=== PATIENT | female | born 1980 | race African-American/Black ===

== ENCOUNTER 2022-02-11 11:54 | Outpatient (REF) | payer MEDICAID, SELFPAY ==
--- NOTE | ~2022-02-11 | MM_ITS ---
EXAMINATION: MM SCREENING DIGITAL BREAST TOMOSYNTHESIS, BILATERAL CLINICAL INFORMATION: Screening. Asymptomatic. No prior breast imaging. Age 41. Prior history reduction mammoplasty 1998. The lifetime risk of breast cancer based on the Tyrer-Cuzick Model is 10%. COMPARISON: None (current study represents initial baseline exam). TECHNIQUE: Digital breast tomosynthesis is performed in both the craniocaudal and mediolateral oblique views along with computer-aided detection (CAD). Synthesized 2D images are generated from the tomosynthesis. FINDINGS: There are scattered areas of fibroglandular density (ACR BI-RADS breast composition Category b). There are no significant masses, abnormal calcifications, or other abnormalities. No architectural abnormality. The axilla and skin contours are unremarkable. MM/MM tomosynthesis screening BI IMPRESSION: No mammographic evidence of malignancy. ASSESSMENT: BI-RADS 1: Negative RECOMMENDATION: Routine annual mammography screening. This patient's information was entered into a reminder system with a target due date for their next mammogram.
== END 2022-02-11 11:55 | disposition home or self-care (01) ==
LOC: HO.MAMMO 11:54
PROVIDERS: PCP Pediatrics; Visit Provider Pediatrics
DX: Z12.31 Encounter for screening mammogram for malignant neoplasm of breast (principal)
CPT/HCPCS: 77063; 77067

== ENCOUNTER 2024-03-15 08:30 | Outpatient (REF) | payer MEDICAID, SELFPAY ==
[2024-03-15 15:05] LABS: MANUAL DIFF FLAG NO
[2024-03-15 15:11] LABS: Basophils Percent Auto 0.3 % (0-2); Eosinophils Absolute Auto 0.1 X10*3/uL (0.0-0.4); Eosinophils Percent Auto 0.7 % (0-4); Hematocrit 38.5 % (37.0-47.0); Hemoglobin 11.9 g/dl (12.0-16.0); Imm Gran Abs Auto 0.03 X10*3/uL (0.00-0.03); Imm Gran Pct Auto 0.4 % (0.0-0.4); Lymphocytes Absolute Auto 2.1 X10*3/uL (1.2-4.9); Lymphocytes Percent Auto 29.9 % (20-40); Mean Corpuscular HGB Conc 30.9 g/dl (31.0-35.0); Mean Corpuscular Hemoglobin 23.6 pg (27.0-33.0); Mean Corpuscular Volume 76.4 fL (80.0-98.0); Mean Platelet Volume 12.1 fL (9.4-12.3); Monocytes Absolute Auto 0.5 X10*3/uL (0.1-1.2); Neutrophils Absolute Auto 4.3 x10*3/uL (2.0-8.3); Neutrophils Percent Auto 61.7 % (45-73); Platelet Count 346 X10*3/uL (160-400); Red Blood Count 5.04 X10*6/uL (4.20-5.50); Red Cell Distribution Width 15.1 % (11.0-16.0)
[2024-03-15 15:34] LABS: Alanine Aminotransferase 13 U/L (0-31); Albumin Level 4.1 g/dL (3.5-5.0); Alkaline Phosphatase 85 U/L (39-117); Anion Gap 11 (12-20); Aspartate Amino Transferase 18 U/L (5-31); Bilirubin Direct 0.2 mg/dL (0.0-0.5); Bilirubin Total 0.5 mg/dL (0.0-1.0); Blood Urea Nitrogen 9 mg/dL (9-16); Calcium 9.7 mg/dL (8.4-10.2); Carbon Dioxide 26 mmol/L (22-29); Chloride 101 mmol/L (96-108); Cholesterol 215 mg/dL (<200); Estimated Glomerular Filt Rate > 60; Glucose Fasting 229 mg/dL (60-99); HDL Cholesterol 51 mg/dL (>40); LDL Cholesterol Calculated 133 mg/dL (<100); Potassium 4.4 mmol/L (3.3-5.1); Sodium 134 mmol/L (135-145); Total Protein 7.2 g/dL (6.5-8.0); Triglycerides 156 mg/dL (<150)
[2024-03-15 15:41] LABS: Creatinine Urine 152.39 mg/dL; Microalbum/Creatinine Ratio Ur 6.5 ug/mg cr (<30)
[2024-03-15 15:53] LABS: TSH reflex Free T4 1.42 uIU/mL (0.32-4.0)
[2024-03-18 17:43] LABS: TS Negative Control Passed; TS Panel A 0; TS Panel B 0; TS Positive Control Passed; TSpotTB Negative (Negative)
== END 2024-03-15 08:31 | disposition home or self-care (01) ==
LOC: HO.CHCLDS 08:30
PROVIDERS: Visit Provider Pediatrics
DX: Z00.00 Encounter for general adult medical examination without abnormal findings (principal); E11.9 Type 2 diabetes mellitus without complications
CPT/HCPCS: 36415; 80048; 80061; 80076; 82043; 82570; 84443; 85025; 86481

== ENCOUNTER 2024-09-19 10:07 | Outpatient (REF) | payer MEDICAID, SELFPAY ==
[2024-09-19 14:27] LABS: Basophils Percent Auto 0.5 % (0-2); Eosinophils Percent Auto 0.6 % (0-4); Hematocrit 35.1 % (37.0-47.0); Hemoglobin 10.8 g/dl (12.0-16.0); Imm Gran Abs Auto 0.03 X10*3/uL (0.00-0.03); Imm Gran Pct Auto 0.5 % (0.0-0.4); Lymphocytes Absolute Auto 1.7 X10*3/uL (1.2-4.9); MANUAL DIFF FLAG NO; Mean Corpuscular HGB Conc 30.8 g/dl (31.0-35.0); Mean Corpuscular Hemoglobin 23.6 pg (27.0-33.0); Mean Corpuscular Volume 76.6 fL (80.0-98.0); Mean Platelet Volume 11.5 fL (9.4-12.3); Monocytes Absolute Auto 0.5 X10*3/uL (0.1-1.2); Monocytes Percent Auto 7.5 % (2-11); Neutrophils Absolute Auto 4.1 x10*3/uL (2.0-8.3); Neutrophils Percent Auto 63.9 % (45-73); Platelet Count 343 X10*3/uL (160-400); Red Blood Count 4.58 X10*6/uL (4.20-5.50); Red Cell Distribution Width 14.8 % (11.0-16.0); White Blood Count 6.4 X10*3/uL (4.8-10.8)
[2024-09-19 14:35] LABS: C Reactive Protein 4.36 mg/dL (< or = 0.50); Uric Acid 3.6 mg/dL (2.4-5.7)
[2024-09-19 14:58] LABS: Erythrocyte Sedimentation Rate 25 MM/HR (0-20)
[2024-09-19 15:29] LABS: Creatinine Urine 50.42 mg/dL; Microalbum/Creatinine Ratio Ur 35.7 ug/mg cr (<30)
== END 2024-09-19 10:08 | disposition home or self-care (01) ==
LOC: HO.CHCLDS 10:07
PROVIDERS: Visit Provider Pediatrics
DX: E11.9 Type 2 diabetes mellitus without complications (principal); M25.422 Effusion, left elbow
CPT/HCPCS: 36415; 82043; 82570; 84550; 85025; 85652; 86140

== ENCOUNTER 2025-01-12 10:48 | Outpatient (REF) | payer MEDICAID, SELFPAY ==
--- OUTSIDE RECORDS SUMMARY | 2025-01-12 12:29 | XMS_ITS | Encounter Summary ---
Author Organization [employer] Address [address] [facility] 7 [place] [address] Care Team Providers Care Pension Administrator Name Role Phone Milena Spring MD Primary Care Provider [phone] Reason for Visit * Reason Comments Med Refill Encounter Details Date Type Department Care Team ([facility] st Contact Info) Description 02/04/2024 Refill [facility] CHC MED & PEDS [address] [place], [place] [phone] Milena Spring MD [address] [place] [address] Social History Tobacco Use Types Packs/Day Years Used Date Smoking Tobacco: Never Passive Smoke Exposure: Never Smokeless Tobacco: Never Depression Answer Date Recorded Patient Health Questionnaire-9 Score 3 11/18/2023 Patient Health Questionnaire-9 Score 3 11/18/2023 Last PHQ-9: Questionnaire Data Not on file 0 11/18/2023 Housing Stability Answer Date Recorded What is your housing situation today? [place] 08/06/[address] you li ve. Do you have problems with any of the following? None of the above 08/06/2023 Food Insecurity Answer Date Recorded Within the past 12 months, y ou worried that your food would run out before you got money to buy more: Never True 08/06/2023 Within the past 12 months,th e food you bought just didn't last and you didn't have enough money to get more: Never True Transportation Answer Date Recorded In the past 12 months, has l ack of transportation kept you from medical appts, meetings, work or from getting things needed for daily living? No 08/06/2023 Utilities Answer Date Recorded In the past 12 months, has t he electric, gas, oil or water company threatened to shut off services in your home? No 08/06/2023 Depression Answer Date Recorded Patient Health Questionnaire-2 Score 1 11/18/2023 Comments No Sex and Gender Information Value Date Recorded Sex Assigned at Female 08/10/2022 10:17 AM EDT Legal Sex Female 10:17 AM EDT Gender Identity Female 08/10/2022 10:17 AM EDT Sexual Orientation Straight 08/10/2022 10 :17 AM EDT documented as of this encounter Plan of Treatment Upcoming Encounters Date Type Department Care Team ([facility] st Contact Info) Description 02/27/2025 9:00 AM EDT Telemedicine [facility] MED & PEDS [address] [place] [address] Milena Spring MD [address] [place] [address] documented as of this encounter Visit Diagnoses Not on filedocumented in this encounter Additional Health Concerns Assessment Noted Time PHQ-9 Depression Total Score: 3 11/18/19 24 2:36 PM EST documented as of this encounter Care Teams Pension Administrator Relationship Specialty Start Date End Date Milena Spring MD [address] [place] [address] PCP - General Family Medicine 08/21/20 documented as of this encounter
--- OUTSIDE RECORDS SUMMARY | 2025-01-12 12:30 | XMS_ITS | Encounter Summary ---
Author Organization [employer] Address [address] [place] [address] Care Team Providers Care Liability Claims Representative Name Role Phone Milena Spring MD Primary Care Provider [phone] Reason for Visit * Reason Comments Med Refill Encounter Details Date Type Department Care Team ([facility] Contact Info) Description 12/05/2022 Refill [facility] MEDICINE [address] [place] [address] Milena Spirng MD [address] [place] [address] Social History Tobacco Use Types Packs/Day Years Used Date Smoking Tobacco: Never Assessed Comments Unknown Sex and Gender Information Value Date Recorded Sex Assigned at Female 08/10/2022 10:17 AM EDT Legal Sex Female 10:17 AM EDT Gender Identity Female 08/10/2022 10:17 AM EDT Sexual Orientation Straight 08/10/2022 10 :17 AM EDT documented as of this encounter Plan of Treatment Upcoming Encounters Date Type Department Care Team ([facility] Contact Info) Description 02/27/2025 9:00 AM EDT Telemedicine [facility] CHC MED & PEDS [address] [place], [place] [phone] Milena Spring MD [address] [place] [address] documented as of this encounter Visit Diagnoses Not on filedocumented in this encounter Care Teams Liability Claims Representative Relationship Specialty Start Date End Date Milena Spring MD [address] [place] [address] PCP - General Family Medicine 08/21/20 documented as of this encounter
--- OUTSIDE RECORDS SUMMARY | 2025-01-12 12:30 | XMS_ITS | Encounter Summary ---
Author Organization [employer] Address [address] [place] [address] [address] [address] Care Team Providers Care Visualization Developer Name Role Phone Milena Spring MD Primary Care Provider [phone] Reason for Referral * Imaging (Routine) - Authorized Specialty Diagnoses / Procedures Referred By Contac t Referred To Contact Radiology Diagnoses Breast cancer screening by mammogram Procedures BI Mammogram Screening Tomosynthesis Bilateral Milena Spring MD [address] [place] [address] Phone: tel: fax: [facility] Referral ID Status Reason Start Date Expiration Date V isits Requested Visits Authorized [id number] Authorized 01/12/2025 01/12/2026 1 1 Encounter Details Date Type Department Care Team (Late st Contact Info) Description 01/12/2025 9:45 AM EDT Office Visit [facility] CHC MED & PEDS [address] [place] [address] Milena Spring MD [address] [place] [address] Type 2 diabetes mellitus not at goal (CMS/HCC) (Primary Dx); Abscess of bursa of left elbow; Adjustment disorder with depressed mood; Breast cancer screening by mammogram Social History Tobacco Use Types Packs/Day Years Used Date Smoking Tobacco: Never Passive Smoke Exposure: Never Smokeless Tobacco: Never Depression Answer Date Recorded Patient Health Questionnaire-9 Score 0 01/12/2025 Patient Health Questionnaire-9 Score 0 01/12/2025 Last PHQ-9: Questionnaire Data Not on file 0 01/12/2025 Housing Stability Answer Date Recorded What is your housing situation today? [place] 01/12/[address] you li ve. Do you have problems with any of the following? None of the above 01/12/2025 Food Insecurity Answer Date Recorded Within the past 12 months, y ou worried that your food would run out before you got money to buy more: Never True 01/12/2025 Within the past 12 months,th e food you bought just didn't last and you didn't have enough money to get more: Never True 01/2025 Transportation Answer Date Recorded In the past 12 months, has l ack of transportation kept you from medical appts, meetings, work or from getting things needed for daily living? No 01/12/2025 Utilities Answer Date Recorded In the past 12 months, has t he electric, gas, oil or water company threatened to shut off services in your home? No 01/12/2025 Depression Answer Date Recorded Patient Health Questionnaire-2 Score 0 01/12/2025 Internet Access Answer Date Recorded Internet Access Q1 Yes 01/12/2025 Internet Access Q2 Not on file 01/12/2025 Comments No Sex and Gender Information Value Date Recorded Sex Assigned at Female 08/10/2022 10:17 AM EDT Legal Sex Female 10:17 AM EDT Gender Identity Female 08/10/2022 10:17 AM EDT Sexual Orientation Straight 08/10/2022 10 :17 AM EDT documented as of this encounter Last Filed Vital Signs Vital Sign Reading Time Taken Comments Blood Pressure 128/82 01/12/2025 9:12 AM EDT Pulse 82 01/12/2025 9:12 AM EDT Temperature 36.4 ??C (97.6 ??F) 01/12/2025 9:12 AM ED T Respiratory Rate 20 01/12/2025 9:12 AM EDT Oxygen Saturation 100% 01/12/2025 9:12 AM EDT Inhaled Oxygen Concentration - - Weight 85.7 kg (189 lb) 01/12/2025 9:12 AM EDT Height 158.8 cm (5' 2.5 ) 01/12/2025 9:12 AM EDT Body Mass Index 34.02 01/12/2025 9:12 AM EDT documented in this encounter Plan of Treatment Upcoming Encounters Date Type Department Care Team (Late st Contact Info) Description 02/27/2025 9:00 AM EDT Telemedicine [facility] CHC MED & PEDS [address] [place] [address] Milena Spring MD [address] [place] [address] Scheduled Orders Name Type Priority Associated Diagnoses Orde r Schedule Albumin, Random Urine W/Creatinine Lab Routine Type 2 diabetes mellitus not at goal (CMS/HCC) Abscess of bursa of left elbow Adjustment disorder with depressed mood Expected: 01/12/2025 (Approximate), Expires: 01/12/2026 Basic Metabolic Panel, Fasting Lab Routine Type 2 diabetes mellitus not at goal (CMS/HCC) Abscess of bursa of left elbow Adjustment disorder with depressed mood Expected: 01/12/2025 (Approximate), Expires: 01/12/2026 CBC auto differential Lab Routine Type 2 diabetes mellitus not at goal (CMS/HCC) Abscess of bursa of left elbow Adjustment disorder with depressed mood Expected: 01/12/2025 (Approximate), Expires: 01/12/2026 Hepatic Function Panel Lab Routine Type 2 diabetes mellitus not at goal (CMS/HCC) Abscess of bursa of left elbow Adjustment disorder with depressed mood Expected: 01/12/2025 (Approximate), Expires: 01/12/2026 Vitamin B12/Folate, Serum Panel Lab Routine Type 2 diabetes mellitus not at goal (CMS/HCC) Abscess of bursa of left elbow Adjustment disorder with depressed mood Expected: 01/12/2025, Expires: 01/12/2026 TSH W/Reflex to FT4 Lab Routine Type 2 diabetes mellitus not at goal (CMS/HCC) Abscess of bursa of left elbow Adjustment disorder with depressed mood Expected: 01/12/2025 (Approximate), Expires: 01/12/2026 Lipid Panel, Standard Lab Routine Type 2 diabetes mellitus not at goal (CMS/HCC) Abscess of bursa of left elbow Adjustment disorder with depressed mood Expected: 01/12/2025 (Approximate), Expires: 01/12/2026 Hepatitis C Antibody with Reflex to HCV, RNA, Quantitative, Real-Time PCR Lab Routine Type 2 diabetes mellitus not at goal ([facility]) Abscess of bursa of left elbow Adjustment disorder with depressed mood Expected: 01/12/2025, Expires: 01/12/2026 C-reactive Protein Lab Routine Type 2 diabetes mellitus not at goal ([facility]) Abscess of bursa of left elbow Adjustment disorder with depressed mood Expected: 01/12/2025 (Approximate), Expires: 01/12/2026 BI Mammogram Screening Tomosynthesis Bilateral Imaging Routine Breast cancer screening by mammogram Expected: 01/12/2025, Expires: 03/14/2026 documented as of this encounter Procedures Procedure Name Priority Date/Time Associated Diagnosis Comments POCT GLYCATED HEMOGLOBIN, TOTAL Routine 01/12/2025 10:09 AM EDT Type 2 diabetes mellitus not at goal ([facility]) POCT GLUCOSE Routine 01/12/2025 10:08 AM EDT Type 2 diabetes mellitus not at goal ([facility]) documented in this encounter Results * (ABNORMAL) POCT HGB A1C (01/12/2025 10:09 AM EDT) Hemoglobin A1C 7.6(A) 4.0 - 6.0 % QC Media Lot # [id number] Lot# Expiration Date [id number] Blood 01/12/2025 10:0 9 AM EDT us Milena Spring MD POINT OF CARE TEST ENTER/EDIT ORDERABLES Final Result * POCT Glucose (01/12/2025 10:08 AM EDT) Glucose Blood, POC 112 60 - 200 mg/dL QC Media Lot # [id number] Lot# Expiration Date 7,325 Blood Capillary blood specimen / Unknown 01/12/2025 10:08 AM EDT us Milena Spring MD POINT OF CARE TEST ENTER/EDIT ORDERABLES Final Result documented in this encounter Visit Diagnoses Diagnosis Type 2 diabetes mellitus not at goal ([facility])- Primary Abscess of bursa of left elbow Other disorders of synovium, tendon, and bursa Adjustment disorder with depressed mood Breast cancer screening by mammogram documented in this encounter Additional Health Concerns Assessment Noted Time PHQ-9 Depression Total Score: 0 01/13/20 25 9:18 AM EDT documented as of this encounter Care Teams Visualization Developer Relationship Specialty Start Date End Date Milena Spring MD [address] [place] [address] PCP - General Family Medicine 08/21/20 documented as of this encounter
--- OUTSIDE RECORDS SUMMARY | 2025-01-12 12:30 | XMS_ITS | Encounter Summary ---
Author Organization [employer] Address [address] [facility] [address], [place] [address] Care Team Providers Care Appointment Setter Name Role Phone Milena Spring MD Primary Care Provider [phone] Reason for Visit * Reason Onset Date Comments Chart Prep 01/09/2025 Encounter Details Date Type Department Care Team ([facility] st Contact Info) Description 01/09/2025 Telephone [facility] CHC MED & PEDS [address] [place], [place] [phone] Milena Spring MD [address] [place] [address] Chart Prep Social History Tobacco Use Types Packs/Day Years [...] AM EDT documented as of this encounter Miscellaneous Notes * Telephone Encounter - Suzanna Mohr [place] - 01/09/2025 3:45 PM EDT Chart Prep Labs: done Images: not done Vaccines due: yes Referrals: not applicable Screenings: colonoscopy, foot exam, STI screening, and LMP Overdue care gaps: A1c, Glucose, SBIRT, SDOH, PHQ-9, Oral health screening, Disability screen, and Tobacco documented in this encounter Plan of Treatment Upcoming Encounters Date Type Department Care Team (Late st Contact Info) Description 02/27/2025 9:00 AM EDT Telemedicine [facility] MED & PEDS [address] [place] [address] Milena Spring MD [address] [place] [address] documented as of this encounter Visit Diagnoses Not on filedocumented in this encounter Additional Health Concerns Assessment Noted Time PHQ-9 Depression Total Score: 3 11/18/19 24 2:36 PM EST documented as of this encounter Care Teams Appointment Setter Relationship Specialty Start Date End Date Milena Spring MD [address] [place] [address] PCP - General Family Medicine 08/21/20 documented as of this encounter
--- OUTSIDE RECORDS SUMMARY | 2025-01-12 12:30 | XMS_ITS | Encounter Summary ---
Author Organization [employer] Address [address] [facility] [address] [place] [address] Care Team Providers Care Front Office Clerk Name Role Phone Milena Spring MD Primary Care Provider [phone] Encounter Details Date Type Department Care Team (Latest Contact Info) Description 01/12/2025 Travel Social History Tobacco Use Types Packs/Day Years [...] Info) Description 02/27/2025 9:00 AM EDT Telemedicine [facility] MED & PEDS [address] [place] [address] Milena Spring MD [address] [place] [address] documented as of this encounter Visit Diagnoses Not on filedocumented in this encounter Additional Health Concerns Assessment Noted Time PHQ-9 Depression Total Score: 0 01/13/20 25 9:18 AM EDT documented as of this encounter Care Teams Front Office Clerk Relationship Specialty Start Date End Date Milena Spring MD [address] [place] [address] PCP - General Family Medicine 08/21/20 documented as of this encounter
--- OUTSIDE RECORDS SUMMARY | 2025-01-12 12:30 | XMS_ITS | Clinical Summary ---
Author Organization [employer] Address [address] [place] [address] [address] [place] [address] Care Team Providers Care Entry Level Account Manager Name Role Phone Milena Spring MD Primary Care Provider [phone] Allergies No known active allergies Medications empagliflozin (Jardiance) 25 MG take 1 tablet by oral route every day in the morning 07/03/20 22 Active ibuprofen 600 MG tablet TAKE ONE TABLET BY MOUTH THREE TIMES DAILY WITH FOOD 30 tablet 01/01/20 23 Active furosemide (Lasix) 40 MG tabletIndication s:Type 2 diabetes mellitus without complication, without long-term current use of insulin (CMS/[facility]) TAKE ONE TABLET EVERY MORNING 90 tablet 02/13/20 23 Active Stimulant Laxative 8.6-50 MG tabletIndication s:Chronic idiopathic constipation TAKE TWO TABLETS EVERY EVENING 180 tablet 1 09/22/20 23 Active glucose blood (FREESTYLE LITE) test strip Use 1 Strip by To Skin route 2 times every day 100 each 11 09/24/20 23 Active lisinopril 5 MG tablet TAKE ONE TABLET BY MOUTH EVERY MORNING 90 tablet 1 03/30/20 24 Active insulin pen needle (Pentips) 31G x 5 mm miscIndications: Type 2 diabetes mellitus without complication, with long-term current use of insulin (CMS/HCC) USE FOUR DAILY 100 each 05/15/20 24 Active Lantus SoloStar 100 UNIT/ML pen INJECT 50 UNITS SUBCUTANEOUSLY AT BEDTIME 15 mL 5 06/19/20 24 Active ammonium lactate (Amlactin) 12 % cream APPLY TO THE AFFECTED AREA(S) THREE TIMES DAILY 385 g 5 06/21/20 24 Active Jardiance 25 MGIndications:Ty pe 2 diabetes mellitus without complication, without long-term current use of insulin ([facility]) TAKE ONE TABLET BY MOUTH EVERY MORNING 90 tablet 3 07/07/20 24 Active pantoprazole (ProtoNix) 20 MG EC tabletIndication s:Chronic idiopathic constipation TAKE ONE TABLET EVERY MORNING 90 tablet 11 07/07/20 24 Active glipiZIDE (Glucotrol) 10 MG tabletIndication s:Type 2 diabetes mellitus without complication, without long-term current use of insulin ([facility]) TAKE ONE TABLET IN THE MORNING AND EVENING 180 tablet 07/07/20 24 Active semaglutide (Ozempic) 2 MG/1.5ML solution pen-injectorIndi cations:Type 2 diabetes mellitus not at goal ([facility]) Inject 1 mg weekly 2 each 09/19/20 24 Active Blood Glucose Monitoring Suppl (Blood Glucose Monitor System) w/Device kitIndications:T ype 2 diabetes mellitus not at goal ([facility]) Use to check BS as needed 1 kit 09/19/20 Active Continuous Glucose Monitor Sup miscIndications: Type 2 diabetes mellitus not at goal ([facility]) Check BS as needed 2 Units 09/19/20 24 Active ferrous sulfate (Fe Tabs) 325 (65 Fe) MG EC tablet Take 1 tablet (325 mg) by mouth with breakfast. 30 tablet 5 09/28/20 24 025 Active metFORMIN XR (Glucophage-XR) 500 MG 24 hr tablet TAKE TWO TABLETS EVERY EVENING WITH SUPPER, DO NOT BREAK, CRUSH, DISSOLVE OR CHEW 60 tablet 11 11/29/19 25 Active venlafaxine XR (Effexor XR) 37.5 MG 24 hr capsule Take 1 capsule (37.5 mg) by mouth Once per day. Do not crush or chew. 30 capsule 2 01/13/20 25 025 Active Active Problems Problem Noted Date Diagnosed Date Adjustment disorder with depressed mood 12/23/19 18 Diabetes mellitus 12/30/2011 Obesity 12/30/2011 Encounters Date Type Department Care Team Description 01/12/2025 9:45 AM EDT Office Visit [facility] [address] [place] [address] Milena Spring MD Type 2 diabetes mellitus not at goal ([facility]) (Primary Dx); Abscess of bursa of left elbow; Adjustment disorder with depressed mood; Breast cancer screening by mammogram 01/12/2025 Travel 01/09/2025 Telephone [facility] [address] [place] [address] Milena Spring MD Chart Prep 12/22/2024 Population Health Risk Score [facility] ([facility]) Department [address] [place] [phone] Provider, Population Health Generic 12/15/2024 Telephone [facility] [address] [place] [address] Milena Spring MD Nurse Triage 11/29/2024 Refill [facility] [address] [place] [address] Milena Spring MD 11/08/2024 Telephone [facility] [address] [place] [phone] Milena Spring MD 11/07/2024 Orders Only [facility] [address] [place] [phone] Milena Spring MD Type 2 diabetes mellitus not at goal (CMS/HCC) (Primary Dx) 11/07/2024 Telephone [facility] [address] [place] [address] Usha Casey, PharmD 10/27/2024 Telephone [facility] [address] [place] [address] Milena Spring MD No Show from Last 3 Months Immunizations Name Administration Dates Next Due Influenza injectable quadriv alent IIV4 with preservative 08/02/2019,08/17/2018,08/10/2017 Influenza injectable quadriv alent preservative free 11/18/2023,08/07/2021,09/02/2020 Influenza, IIV3, injectable 07/11/2014, 3,08/13/2009 Tdap 08/17/2018,10/26/2013,12/12/2010 Social History Tobacco Use Types Packs/Day Years Used Date Smoking Tobacco: Never Passive Smoke Exposure: Never Smokeless Tobacco: Never Tobacco Cessation:Counseling Given: Not Answered Depression Answer Date Recorded Patient Health Questionnaire-9 [...] Orientation Straight 08/10/2022 10 :17 AM EDT Last Filed Vital Signs Vital Sign Reading [...] Mass Index 34.02 01/12/2025 9:12 AM EDT Plan of Treatment Upcoming Encounters Date Type Department Care Team (Late st Contact Info) Description 02/27/2025 9:00 AM EDT Telemedicine [facility] [address] [place] [address] Milena Spring MD [address] [place] [address] Health Maintenance Due Date Last Done Comments CT Colonography 1979 Colonoscopy 1979 Colorectal Cancer Screening 1979 FIT DNA/Cologuard 1979 FIT 1979 FOBT 1979 HIV Screening 1979 Sigmoidoscopy 1979 Family Planning (PISQ) 1994 Hepatitis B Vaccines (1 of 3 - 19+ 3-dose series) 1998 Pneumococcal Vaccine: Pediatrics (0 to 5 Years) and At-Risk Patients (6 to 49) Years) (1 of 2 - PCV) 1998 Mammogram 02/12/2024 02/11/2022 COVID-19 Vaccine (3 - season) 2024 06/19/2021, 05/29/2021 Influenza Vaccine (#1) 2024 , 08/07/2021, 09/02/2020, Additional history exists Pap Smear 09/18/2024 09/18/2021 Diabetes: Foot Exam 11/18/2024 11/18/2023, 11/18/2023, 11/18/2023, Additional history exists Lipid Panel 03/15/2025 03/15/2024, 08/11, 09/20/2020 Diabetes: Hemoglobin A1C 04/13/2025 04/04/2 025, 09/19/2024, 11/18/2023, Additional history exists Diabetes: Urine Protein Screening 09/19/2025 09/19/2024, 03/15/2024, 08/20/2021, Additional history exists Eye Exam 12/15/2025 12/16/2023 Alcohol/Substance Use Screening 01/12/2026 01/12/2025 Depression Screening 01/12/2026 01/12/2025, 01/13/20 25 SDOH Screening 01/12/2026 01/12/2025 Tobacco Screening 01/12/2026 01/12/2025 Cervical Cancer Screening 09/18/2026 HPV/Cotest 09/18/2026 09/18/2021 DTaP/Tdap/Td Vaccines (4 - Td or Tdap) 08/17/2028 08/17/2018, 10/26/2013, 12/12/2010 Zoster Vaccines (1 of 2) 2029 RSV Patients and Patients Aged 60 years or older (1 - 1-dose 75+ series) 2054 Hepatitis C Screening Completed 11/14/2019 HIB Vaccines Aged Out No longer eligi ble based on patient's age to complete this topic HPV Vaccines Aged Out No longer eligi ble based on patient's age to complete this topic Hepatitis A Vaccines Aged Out No long er eligible based on patient's age to complete this topic IPV Vaccines Aged Out No longer eligi ble based on patient's age to complete this topic Meningococcal Vaccine Aged Out No hipolito anurag eligible based on patient's age to complete this topic RSV under 20 months Aged Out No longe r eligible based on patient's age to complete this topic Rotavirus Vaccines Aged Out No longer eligible based on patient's age to complete this topic Procedures Procedure Name Priority Date/Time Associated Diagnosis Comments POCT GLYCATED HEMOGLOBIN, TOTAL Routine 01/12/2025 10:09 AM EDT Type 2 diabetes mellitus not at goal (CMS/HCC) POCT GLUCOSE Routine 01/12/2025 10:08 AM EDT Type 2 diabetes mellitus not at goal (CMS/HCC) ALBUMIN, RANDOM URINE W/CREATININE Routine 09/19/2024 10:15 AM EST Type 2 diabetes mellitus not at goal (CMS/HCC) Swelling of left elbow LIPID PANEL, STANDARD Routine 03/15/2024 8:33 AM EDT Type 2 diabetes mellitus without complication, without long-term current use of insulin (CMS/HCC) Routine general medical examination at a [facility] facility HM DIABETES EYE EXAM Routine 12/16/2023 MAMMOGRAM GENERIC Routine 02/11/2022 12: 20 PM EDT THINPREP IMAGING PAP AND HPV MRNA E6/E7, WITH CT/NG, TRICHOMONAS Routine 09/18/2021 2:52 PM EST ZZZ HISTORICAL HEPATITIS C ANTIBODY RFLX Routine 11/14/2019 12:14 PM EST from Last 3 Months or Most Recently Relevant to Health Maintenance Results * (ABNORMAL) POCT HGB A1C (01/12/2025 10:09 AM EDT) Hemoglobin A1C 7.6(A) 4.0 - 6.0 % QC Media Lot # [id number] Lot# Expiration Date [id number] Blood 01/12/2025 10:0 9 AM EDT Milena Spring MD POINT OF CARE TEST ENTER/EDIT ORDERABLES Final Result * POCT Glucose (01/12/2025 10:08 AM EDT) Glucose Blood, POC 112 60 - 200 mg/dL QC Media Lot # [id number] Lot# Expiration Date 7,325 Blood Capillary blood specimen / Unknown 01/12/2025 10:08 AM EDT Milena Spring MD POINT OF CARE TEST ENTER/EDIT ORDERABLES Final Result * (ABNORMAL) Albumin, Random Urine W/Creatinine (09/19/2024 10:15 AM EST) Creatinine, Urine 50.42 mg/dL [facility] Microalbumin Urine 18.0 mg/L H [facility] Microalbum Creatinine Ratio Ur 35.7(H) <30 ug/mg cr [facility] Comment:Albumin/Creatinine R atio Reference Ranges: Normal: < 30 ug/mg creatinine Microalbuminuria: 30 - 300 ug/mg creatinineClinical Albuminuria: > 300 ug/mg creatinine Urine (Urine, Random) 09/19/2024 10:15 AM EST 09/19/2024 2:21 PM EST us Milena Spring MD LAB URINE ORDERABLES Final Re sult Performing Organization Address [facility] de Phone Number [facility] [address] [place] [phone] * (ABNORMAL) Lipid Panel, Standard (03/15/2024 8:33 AM EDT) Triglycerides 156(H) <150 mg/dL [facility] Comment:Desirable Triglyceri de: less than 150 mg/dLBorderline High Triglyceride 150-199 mg/dLHigh Triglyceride: 200-499 mg/dLVery High Triglyceride: greater than or equal to 5OO mg/dL Cholesterol 215(H) <200 mg/dL [facility] Comment:Desirable Cholestero l: less than 200 mg/dLBorderline High Cholesterol: 200-239 mg/dLHigh Cholesterol: greater than 239 mg/dL LDL Cholesterol Calculated 133(H) <100 mg/dL [facility] Comment:Desirable LDL: less than 100 mg/dLNear Optimal/Above Optimal LDL: 110- 129 mg/dLBorderline High LDL: 130-159 mg/dLHigh LDL: 160-189 mg/dLVery High LDL: greater than or equal to 190 mg/dL HDL Cholesterol 51 >40 mg/dL [facility] Comment:Desirable HDL: great er than 40 mg/dL Note: This HDL assay may give artificially low results in patients with liver disease. Blood Venous blood specimen / Unknown 03/15/2024 8:33 AM EDT 03/15/2024 3:01 PM EDT us Milena Spring MD LAB BLOOD ORDERABLES Final Re sult Performing Organization Address [facility] Co de Phone Number [facility] [address] [place] [phone] [phone] * Hm Diabetes Eye Exam (12/16/2023) Eye Exam Normal Normal, BIRADS 0 , BIRADS 1 , BIRADS 2, BIRADS 3 , BIRADS 4+ us Milena Spring MD HEALTH MAINTENANCE Final Resu lt * Mammography Report 1 (02/11/2022 12:20 PM EDT) Anatomical Region Laterality Modality Breast Bilateral Mammography 02/11/2022 12:2 0 PM EDT Narrative 02/12/2022 4:41 PM EDT Refer to the Notes tab for result details [facility] Procedure: Mammography Report 1 Procedure Note ProviderSamantha MD - 01/03/2023 Refer to the Notes tab for result details [facility] Procedure: Mammography Report 1 Milena Spring MD IMG BI PROCEDURES Final Resul t * THINPREP TIS PAP AND HPV mRNA E6/E7, CT/NG, TRICH (09/18/2021 2:52 PM EST) Chlamydia trachomatis RNA, TMA, Urogenital NOT DETECTED NOT DETECTED [facility] Clinical Information: None given [facility] COMMENT SEE COMMENT [facility] Comment: The analytical performance characteristics of this assay, when used to test SurePath(TM) specimens have been determined by [facility] [employer]. The modifications have not been cleared or approved by the FDA. This assay has been validated pursuant to the CLIA regulations and is used for clinical purposes. ?? For additional information, please refer to https://education.DealAngel.MeshApp/faq/HSX212 (This link is being provided for information/ educational purposes only.) ?? COMMENT SEE COMMENT [facility] Comment: EXPLANATORY NOTE: ? The Pap is a screening test for cervical cancer. It is ?? not a diagnostic test and is subject to false negative ?? and false positive results. It is most reliable when a ?? satisfactory sample, regularly obtained, is submitted ?? with relevant clinical findings and history, and when ?? the Pap result is evaluated along with historic and ?? current clinical information. ?? COMMENT: This Pap test has been evaluated with computer assisted technology. [facility] Document Review Attorney: SEE COMMENT [facility] Comment: CANCHOLA, CT(ASCP) CT screening location: [address] ??[id number] HPV nRNA E6/E7 Not Detected Not Detected [facility] Comment: Methodology: Maid Supervisor-Mediated Amplification This assay detects E6/E7 viral messenger RNA (mRNA) from 14 high-risk HPV types (16,18,31,33,35,39,45,51,52,56,58,59,66,68). ? The analytical performance characteristics of this assay have been determined by [employer]. The modifications have not been cleared or approved by the FDA. This assay has been validated pursuant to the CLIA regulations and is used for clinical purposes. ?? For additional information, please refer to http://[employer].PeerIndex/faq/FXL730g6 (This link if provided for information/ educational purposes only.) Interpretation/Re sult: Negative for intraepithelial lesion or malignancy. [facility] LMP: NONE GIVEN [facility] Neisseria gonorrhoeae RNA, TMA, Urogenital NOT DETECTED NOT DETECTED [facility] Prev. BX: NONE GIVEN [facility] Prev. PAP: NONE GIVEN [facility] SOURCE: None given [facility] Statement Of Adequacy: SEE COMMENT [facility] Comment: Satisfactory for evaluation. Endocervical/transformation zone component absent. Trichomonas vaginalis, QL, TMA, PAP Vial NOT DETECTED NOT DETECTED [facility] Comment: The analytical performance characteristics of this assay have been determined by [employer]. The modifications have not been cleared or approved by the FDA. This assay has been validated pursuant to the CLIA regulations and is used for clinical purposes. ?? For additional information, please refer to http://[employer].PeerIndex/ faq/Trichomonastma (This link is being provided for information/ educational purposes only.) ?? 09/18/2021 2:52 PM EST us Milena Spring MD LAB PATHOLOGY ORDERABLES [facility] smallwood Result [facility] [address] * HEPATITIS C ANTIBODY RFLX (11/14/2019 12:14 PM EST) HEPATITIS C ANTIBODY NONREACTIVE NONREACTIVE [facility] Comment: Antibodies to HCV not detected; does not exclude early acute HCV infection. 11/14/2019 12:1 4 PM EST us Milena Spring MD HISTORICAL/NON ORDERABLE LABS Final Result Performing Organization Address [facility] Co de Phone Number [facility] [address] from Last 3 Months or Most Recently Relevant to Health Maintenance Insurance C3 Care Teams Entry Level Account Manager Relationship Specialty Start Date End Date Milena Spring MD [address] [place] [phone] PCP - General Family Medicine 08/21/20
[2025-01-12 14:06] LABS: MANUAL DIFF FLAG NO
[2025-01-12 14:13] LABS: Basophils Percent Auto 0.3 % (0-2); Eosinophils Percent Auto 0.5 % (0-4); Hematocrit 38.1 % (37.0-47.0); Hemoglobin 12.1 g/dl (12.0-16.0); Imm Gran Abs Auto 0.04 X10*3/uL (0.00-0.03); Imm Gran Pct Auto 0.5 % (0.0-0.4); Lymphocytes Absolute Auto 2.2 X10*3/uL (1.2-4.9); Lymphocytes Percent Auto 29.7 % (20-40); Mean Corpuscular HGB Conc 31.8 g/dl (31.0-35.0); Mean Corpuscular Hemoglobin 24.2 pg (27.0-33.0); Mean Platelet Volume 11.1 fL (9.4-12.3); Monocytes Absolute Auto 0.6 X10*3/uL (0.1-1.2); Monocytes Percent Auto 8.4 % (2-11); Neutrophils Absolute Auto 4.4 x10*3/uL (2.0-8.3); Neutrophils Percent Auto 60.6 % (45-73); Platelet Count 334 X10*3/uL (160-400); Red Blood Count 5.01 X10*6/uL (4.20-5.50); Red Cell Distribution Width 15.5 % (11.0-16.0); White Blood Count 7.3 X10*3/uL (4.8-10.8)
[2025-01-12 14:38] LABS: Alanine Aminotransferase 14 U/L (0-31); Albumin Level 4.4 g/dL (3.5-5.0); Alkaline Phosphatase 74 U/L (39-117); Anion Gap 11 (12-20); Aspartate Amino Transferase 19 U/L (5-31); Bilirubin Direct 0.1 mg/dL (0.0-0.5); Bilirubin Total 0.4 mg/dL (0.0-1.0); Blood Urea Nitrogen 13 mg/dL (9-16); C Reactive Protein 0.14 mg/dL (< or = 0.50); Calcium 9.8 mg/dL (8.4-10.2); Carbon Dioxide 27 mmol/L (22-29); Chloride 106 mmol/L (96-108); Cholesterol 213 mg/dL (<200); Estimated Glomerular Filt Rate > 60; Glucose Fasting 86 mg/dL (60-99); HDL Cholesterol 46 mg/dL (>40); LDL Cholesterol Calculated 142 mg/dL (<100); Potassium 4.1 mmol/L (3.3-5.1); Sodium 140 mmol/L (135-145); Total Protein 7.4 g/dL (6.5-8.0); Triglycerides 125 mg/dL (<150)
[2025-01-12 14:45] LABS: TSH reflex Free T4 0.88 uIU/mL (0.32-4.0)
[2025-01-12 15:00] LABS: Folate 10.8 ng/mL (> or = 4.0); Vitamin B12 480 pg/mL (200-900)
[2025-01-12 15:04] LABS: Microalbumin Urine < 5.0 mg/L
[2025-01-13 08:02] LABS: ~HepC Num1 0.21 S/CO (0.00-0.79); ~Hepatitis C Antibody Nonreactive (Nonreactive)
== END 2025-01-12 10:49 | disposition home or self-care (01) ==
LOC: HO.CHCLDS 10:48
PROVIDERS: Visit Provider Pediatrics
DX: E11.9 Type 2 diabetes mellitus without complications (principal); M71.022 Abscess of bursa, left elbow; F43.21 Adjustment disorder with depressed mood
CPT/HCPCS: 36415; 80048; 80061; 80076; 82043; 82570; 82607; 82746; 84443; 85025; 86140; 86803

== ENCOUNTER 2025-09-24 16:13 | Outpatient (REF) | payer MEDICAID, SELFPAY ==
[2025-09-25 09:38] LABS: Bacterial Vaginosis PCR NEGATIVE (Negative); Candida Group PCR NOT DETECTED (Not Detect); Candida glab krusei PCR NOT DETECTED (Not Detect); Trichomonas vaginalis PCR NOT DETECTED (Not Detect)
== END 2025-09-24 16:14 | disposition home or self-care (01) ==
LOC: HO.CHCLNP 16:13
PROVIDERS: Visit Provider Family Medicine
DX: R30.0 Dysuria (principal)
CPT/HCPCS: 81515; 87086